=== PATIENT | female | born 1990 | race Caucasian/White ===

== ENCOUNTER 2017-06-13 19:29 | Inpatient (IN) | payer BC, OTHER ==
[~2017-06-13] VITALS: Ht 175.3 cm; Wt 56.7 kg
[2017-06-13 19:30] VITALS: BP 130/82
[2017-06-13 20:30] LABS: URINE BILIRUBIN NEGATIVE (Negative); URINE BLOOD NEGATIVE (Negative); URINE CLARITY CLEAR; URINE COLOR YELLOW; URINE GLUCOSE-RANDOM* NEGATIVE (Negative); URINE KETONES NEGATIVE (Negative); URINE LEUKOCYTES NEGATIVE (Negative); URINE NITRITE NEGATIVE (Negative); URINE PROTEIN (DIPSTICK) NEGATIVE (Negative); URINE SPECIFIC GRAVITY 1.015 (1.005-1.035); URINE UROBILINOGEN 0.2 E.U./dl (0.2-1.0)
[2017-06-13 21:05] LABS: ABSOLUTE NEUTROPHILS 2.5 thou/uL (1.4-8.2); BASOPHILS 0.8 % (0.0-2.0); EOSINOPHILS 2.6 % (0.0-3.0); HEMATOCRIT 36.4 % (37.0-47.0); HEMOGLOBIN 12.2 gm/dL (12.0-15.0); LYMPHOCYTES 34.8 % (24.0-44.0); MCH 27.5 pg (26.0-34.0); MCHC 33.5 g/dL (28.0-37.0); MCV 82.3 fL (80.0-100.0); MONOCYTES 11.1 % (1.0-8.0); PLATELET COUNT 253 thou/uL (150-400); POLYS 50.7 % (36.0-66.0); RBC 4.42 mil/uL (4.20-5.00); WBC 4.9 thou/uL (4.0-11.0)
[2017-06-13 21:12] LABS: CALCIUM 9.7 mg/dL (8.5-10.1); CREATININE 0.7 mg/dL (0.6-1.0); POTASSIUM 3.9 mmol/L (3.5-5.1)
[2017-06-13 21:20] LABS: ALBUMIN 4.2 g/dL (3.4-5.0); TOTAL BILIRUBIN 0.3 mg/dL (<0.1-1.0); TOTAL PROTEIN 7.7 g/dL (6.4-8.2)
[2017-06-14 04:50] LABS: CREATININE 0.6 mg/dL (0.6-1.0); POTASSIUM 3.7 mmol/L (3.5-5.1)
[2017-06-14 07:30] LABS: ALBUMIN 3.3 g/dL (3.4-5.0); DIRECT BILIRUBIN < 0.1 mg/dL (<0.1-0.3); SGOT 439 U/L (15-37); SGPT 140 U/L (30-65); TOTAL BILIRUBIN 0.2 mg/dL (<0.1-1.0)
[2017-06-14 11:00] VITALS: BP 120/68
[2017-06-14 14:48] VITALS: BP 118/68
[2017-06-14 18:00] VITALS: BP 124/76
[2017-06-14 18:47] VITALS: BP 123/73
[2017-06-14 19:40] VITALS: BP 124/73
[2017-06-15 03:25] VITALS: BP 111/59
[2017-06-15 05:27] LABS: ABSOLUTE NEUTROPHILS 2.3 thou/uL (1.4-8.2); BASOPHILS 0.7 % (0.0-2.0); EOSINOPHILS 3.6 % (0.0-3.0); HEMATOCRIT 29.1 % (37.0-47.0); LYMPHOCYTES 35.8 % (24.0-44.0); MCHC 33.6 g/dL (28.0-37.0); MCV 83.3 fL (80.0-100.0); MONOCYTES 11.2 % (1.0-8.0); PLATELET COUNT 179 thou/uL (150-400); POLYS 48.7 % (36.0-66.0); RBC 3.49 mil/uL (4.20-5.00); WBC 4.6 thou/uL (4.0-11.0)
[2017-06-15 05:29] LABS: HEMOGLOBIN 9.8 gm/dL (12.0-15.0)
[2017-06-15 05:57] LABS: ALBUMIN 2.9 g/dL (3.4-5.0); ANION GAP 10 mmol/L (7-16); BUN 5 mg/dL (7-18); CALCIUM 8.4 mg/dL (8.5-10.1); CHLORIDE 110 mmol/L (98-107); CO2 22 mmol/L (21-32); CREATININE 0.5 mg/dL (0.6-1.0); GLUCOSE 84 mg/dL (74-106); SGOT 353 U/L (15-37); SGPT 139 U/L (30-65); SODIUM 142 mmol/L (136-145); TOTAL BILIRUBIN 0.3 mg/dL (<0.1-1.0); TOTAL PROTEIN 5.2 g/dL (6.4-8.2)
[2017-06-15 09:21] VITALS: BP 117/74
[2017-06-15 16:09] VITALS: BP 120/85
[2017-06-15 19:50] VITALS: BP 132/83
[2017-06-16 04:30] VITALS: BP 108/68
[2017-06-16 05:59] LABS: ABSOLUTE NEUTROPHILS 1.9 thou/uL (1.4-8.2); BASOPHILS 0.8 % (0.0-2.0); EOSINOPHILS 4.8 % (0.0-3.0); HEMATOCRIT 30.3 % (37.0-47.0); LYMPHOCYTES 40.3 % (24.0-44.0); MCH 27.5 pg (26.0-34.0); MCHC 32.9 g/dL (28.0-37.0); MCV 83.8 fL (80.0-100.0); MONOCYTES 10.4 % (1.0-8.0); PLATELET COUNT 196 thou/uL (150-400); POLYS 43.7 % (36.0-66.0); RBC 3.62 mil/uL (4.20-5.00); RDW 15.3 % (10.5-14.5); WBC 4.3 thou/uL (4.0-11.0)
[2017-06-16 06:19] LABS: ALBUMIN 2.9 g/dL (3.4-5.0); CALCIUM 8.3 mg/dL (8.5-10.1); CREATININE 0.5 mg/dL (0.6-1.0); POTASSIUM 3.5 mmol/L (3.5-5.1); TOTAL BILIRUBIN 0.2 mg/dL (<0.1-1.0); TOTAL PROTEIN 5.6 g/dL (6.4-8.2)
[2017-06-16 08:18] VITALS: BP 113/71
[2017-06-16 16:35] VITALS: BP 134/90
[2017-06-16 19:57] VITALS: BP 134/69
[2017-06-17 04:19] LABS: ALBUMIN 3.1 g/dL (3.4-5.0); CALCIUM 8.8 mg/dL (8.5-10.1); CREATININE 0.5 mg/dL (0.6-1.0); POTASSIUM 3.5 mmol/L (3.5-5.1); TOTAL BILIRUBIN 0.2 mg/dL (<0.1-1.0); TOTAL PROTEIN 5.9 g/dL (6.4-8.2)
[2017-06-17 04:28] VITALS: BP 127/76
[2017-06-17 08:00] VITALS: BP 125/75
[2017-06-17 08:51] VITALS: BP 125/75
[2017-06-17 16:10] LABS: HAV IgM AB (ANTI-HAV IgM) Negative (Negative); HEPATITIS B SURFACE AG Negative (Negative); HEPATITIS C VIRUS AB <0.1 (0.0-0.9)
== END 2017-06-17 09:50 | disposition home or self-care (01) | DRG 558 ==
LOC: ER 19:29 → 4S 22:21 → EROBS 22:21 → 4S 06-14 18:24 → ENTRNSPT 06-17 09:36 → 4S 06-17 09:50 → EDTRNSPTSTS 06-17 09:54 → CMPTRNSPT 06-17 10:01
PROVIDERS: Family Medicine; Nurse Practitioner Acute Care; Physician Assistant
DX: M62.82 Rhabdomyolysis (principal); R74.0 Nonspecific elevation of levels of transaminase and lactic acid dehydrogenase [LDH]; N83.209 Unspecified ovarian cyst, unspecified side
CPT/HCPCS: 10102